=== PATIENT | female | born 1995 | race Caucasian/White ===

== ENCOUNTER 2023-04-01 17:28 | Emergency (ER) | payer OTHER ==
[2023-04-01 17:39] VITALS: BP 128/84; PULSE 74; RESP 18; TEMP 97.7; BMI 33.3
[2023-04-01 20:32] LABS: HCG,QUALITATIVE URINE Positive
[2023-04-01 21:51] LABS: PH,URINE 6.5 (5.0-8.0); URINE APPEARANCE CLEAR; URINE BILIRUBIN NEGATIVE (NEGATIVE); URINE COLOR YELLOW; URINE GLUCOSE (UA) NEGATIVE (NEGATIVE); URINE KETONE NEGATIVE (NEGATIVE); URINE LEUK ESTERASE NEGATIVE (NEGATIVE); URINE NITRITE NEGATIVE (NEGATIVE); URINE PROTEIN NEGATIVE (NEGATIVE); URINE UROBILINOGEN 0.2 mg/dL (0.2-1.0)
== END 2023-04-01 21:19 | disposition home or self-care (01) ==
LOC: JER 17:28
DX: O21.9 Vomiting of pregnancy, unspecified (principal); Z3A.00 Weeks of gestation of pregnancy not specified
CPT/HCPCS: 81003; 84703; 87086; 99283-25